=== PATIENT | female | born 1980 | race Caucasian/White ===

== ENCOUNTER 2020-05-05 13:11 | Emergency (ER) | payer OTHER, SELFPAY ==
--- NOTE | ~2020-05-05 | CT_ITS ---
EXAMINATION: CTA brain carotid DATE: 05/05/2020 14:46 INDICATION: Possible hypoxic brain injury, hanging TECHNIQUE: Computed tomographic angiography (CTA) of the head was performed without and with 100 mL O mnipaque-350 intravenous contrast. CTA of the neck was performed with intravenous contrast. The dose- length product was 1593.83 mGy-cm. Maximum intensity projection and volume rendered 3D-reconstruction s were created by the technologist on a separate workstation. Automated exposure control and iterativ e reconstruction technique were employed. COMPARISON: 10/25/2016 FINDINGS: HEAD CTA: There is no intracranial hemorrhage, acute infarction, or abnormal mass lesion. The ventric les are normal. There is no abnormal mass effect or midline shift. The delgado-white matter differentiat ion is normal. The basal cisterns are patent. The orbits are normal. The paranasal sinuses, mastoids and calvarium are normal. There is no significant stenosis of the basilar artery or posterior cerebral arteries. The right vert ebral artery is dominant. There is no significant stenosis of the intracranial internal carotid arter ies or the anterior or middle cerebral arteries. The anterior communicating artery and posterior comm unicating arteries are normal. There is no aneurysm. NECK CTA: There is multinodular goiter of the right thyroid lobe. The submandibular and parotid gland s are symmetric. There is no lymphadenopathy. There are no masses identified. The airway is unremarka ble. There are no osseous abnormalities. The superior mediastinum is unremarkable. There is 0% stenosis of the proximal right internal carotid artery relative to normal distal artery l umen diameter (NASCET criteria). There is 0% stenosis of the proximal left internal carotid artery re lative to normal distal artery lumen diameter. No carotid aneurysm or dissection are identified. IMPRESSION: 1. No acute intracranial abnormality. Normal head CTA. 2. 0% stenosis of the proximal right internal carotid artery relative to normal distal artery lumen d iameter (NASCET criteria). 3. 0% stenosis of the proximal left internal carotid artery relative to normal distal artery lumen di ameter. Reviewed, dictated and finalized at location A. AL OFFICER IMPRESSION: 1. No acute intracranial abnormality. Normal head CTA. 2. 0% stenosis of the proximal right internal carotid artery relative to normal distal artery lumen diameter (NASCET criteria). 3. 0% stenosis of the proximal left internal carotid artery relative to normal distal artery lumen diameter.
--- NOTE | ~2020-05-05 | XR_ITS ---
EXAMINATION: XR chest 1V INDICATION: Shortness of breath TECHNIQUE: Portable AP chest at 1451 hours COMPARISON: 10/25/2016 FINDINGS: The lungs are free of acute opacities. There is no pleural effusion or pneumothorax. The ca rdiomediastinal silhouette is normal. The visualized osseous structures are unremarkable. IMPRESSION: 1. No acute cardiopulmonary abnormality. Reviewed, dictated and finalized at location A. METRIC TECH
--- NOTE | ~2020-05-05 | CT_ITS ---
EXAMINATION: CT cervical spine wo con DATE: 05/05/2020 14:46 INDICATION: Neck pain, hanging TECHNIQUE: Computed tomography (CT) of the cervical spine was performed without intravenous contrast. The dose-length product (DLP) was 454.37 mGy-cm. Automated exposure control and iterative reconstruc tion technique were employed. COMPARISON: None FINDINGS: There is no fracture, dislocation, or subluxation. The vertebral body heights and alignment are normal. There is mild loss of intervertebral disc space height in the lower cervical spine. The odontoid is intact. Small degenerative osteophytes project from the anterior endplates of multiple ve rtebral bodies. The prevertebral soft tissues are normal. IMPRESSION: 1. No acute osseous abnormality. Reviewed, dictated and finalized at location A. TENANT FIRE FIGHTER
[2020-05-05 13:12] VITALS: BP 174/115; PULSE 118; RESP 18; TEMP 36.4; O2SAT 100
--- NOTE | 2020-05-05 13:23 | ECG_ITS ---
Measurements Intervals [place] Rate: 111 P: 59 IN: 104 QRS: 15 QRSD: 86 T: 76 QT: 318 QTc: 432 Interpretive Statements SINUS TACHYCARDIA WITH SHORT IN INTERVAL FREQUENT VENTRICULAR PREMATURE COMPLEXES POSSIBLE LEFT ATRIAL ENLARGEMENT VOLTAGE CRITERIA FOR LVH NONSPECIFIC ST & T-WAVE ABNORMALITY- HIGH LATERAL LEADS BASELINE WANDER- I, II, AVR, V1-V3 ABNORMAL ECG Electronically Signed On 05-05-2020 16:38:37 KEYSEATER OPERATOR by Barney Cartagena D.O.
--- NOTE | 2020-05-05 13:25 | PC.NURSE ---
patient was found hanging in her [facility] cell from a bed sheet. police estimate that patient was hanging for less than 5 min. patient was unresponsive upon arrival to er but yelled with sternal rub then became A&Ox4 and was able to answer questions. patient has been in [facility] for 2 weeks on a felony charge. patient has a history of bipolar disorder and has a history of previous attempts at ending her life including hanging
--- NOTE | 2020-05-05 14:01 | ED.GENADULT ---
HPI - General Adult General Chief complaint: Altered Mental Status Stated complaint: UNRESPONSIVE Time Seen by Provider: 05/05/20 13:18 History of Present Illness HPI narrative: Patient is a 40-year-old female who presents ER after an apparent suicide attempt. Patient currently tried to hang herself with a bed sheet at the group home. She had tied it to the bed and then leaned herself forward. Per report other inmate states she was in this position for 5 minutes before the event she was removed and she was brought to the ground. Per EMS she was unresponsive with shallow breathing they placed a left humeral intraosseous line. Upon arrival here patient not responding to other people and in a c-collar. Corneal reflex intact in patient woke up rapidly with noxious stimuli. She is oriented x4. Airways intact. Related Data Allergies Allergy/AdvReac Type Severity Reaction Status Date / Time No Known Allergies Allergy Unverified 10/25/16 17:27 Review of Systems Review of Systems: All systems reviewed & are unremarkable except as noted in HPI and below Constitutional: Constitutional: Denies chills, Denies fever(s) and Denies weakness ENT: Denies nasal congestion and Denies sore throat Cardiovascular: Cardiovascular: Denies chest pain and Denies radiating jaw, neck or arm pain Respiratory: Respiratory: Denies cough, Reports dyspnea and Denies wheezing Gastrointestinal: Gastrointestinal: Denies abdominal pain, Denies nausea and Denies vomiting Psychiatric: Psychiatric: Reports anxiety, Reports depression and Reports suicidal ideation PMF Past Medical History Medical History (Updated 05/05/20 @ 16:25 by Bryan Virk MD) Asthma History of cervical cancer Migraines Surgical History Surgical History (Updated 05/05/20 @ 14:04 by Bryan Virk MD) H/O tubal ligation History of hysterectomy Social History Social History (Updated 05/05/20 @ 14:05 by Bryan Virk MD) Substance use type: methamphetamine Exam Narrative: Exam Narrative: GENERAL: Well-appearing, well-nourished, and in no acute distress. HEAD: Normocephalic, atraumatic. EYES: PERRLA and EOMI. ENT: Mucous membranes moist. Abrasion to the chin. NECK: Supple. C-spine immobilized. No visual evidence of trauma to the neck. CHEST: Clear to auscultation. No respiratory distress. HEART: Tachycardic and regular. Normal peripheral pulses. ABDOMEN: Soft, nontender, nondistended. EXTREMITIES: Normal range of motion. No edema. SKIN: Warm, dry, no rash. NEURO: No focal deficits. Alert and oriented x3. PSYCH: Reports she does not want to live anymore and thus attempted to kill her self. Course Vital Signs Vital signs: Vital Signs Temperature 97.5 F L 05/05/20 13:12 Pulse Rate 118 H 05/05/20 13:12 Respiratory Rate 18 05/05/20 13:12 Blood Pressure 174/115 H 05/05/20 13:12 Pulse Oximetry 100 05/05/20 13:12 Temperature 97.5 F L 05/05/20 13:12 Pulse Rate 85 05/05/20 14:19 Respiratory Rate 18 05/05/20 14:19 Blood Pressure 147/112 H 05/05/20 14:19 Pulse Oximetry 99 05/05/20 14:19 Medical Decision Making MDM Narrative Medical decision making narrative: Unremarkable evaluation. No hypoxia. No stridor or difficulty breathing/swallowing. Police present throughout entirety of visit. They are able to monitor patient under suicide precautions at the group home. Patient will be discharged in their custody. Patient continues to endorse suicidal ideation and wants us to just kill her. Vital Signs Vital Signs: Vital Signs Temperature 97.5 F L 05/05/20 13:12 Pulse Rate 118 H 05/05/20 13:12 Respiratory Rate 18 05/05/20 13:12 Blood Pressure 174/115 H 05/05/20 13:12 Pulse Oximetry 100 05/05/20 13:12 Temperature 97.5 F L 05/05/20 13:12 Pulse Rate 85 05/05/20 14:19 Respiratory Rate 18 05/05/20 14:19 Blood Pressure 147/112 H 05/05/20 14:19 Pulse Oximetry 99 05/05/20 14:19 Lab Data Resul
[2020-05-05 14:09] LABS: Add Urine Microscopic? NO; Appearance Urine Clear (Clear); Bilirubin Urine Negative (Negative); Blood Urine Negative (Negative); Color Urine Straw (Yellow); Glucose Urine UA Negative (Negative); Ketones Urine Negative (Negative); Leukocyte Esterase Ur Negative LEU/UL (Negative); Nitrate Urine Negative (Negative); Protein Urine Negative (Negative); Urobilinogen Urine Negative mg/dL (<2.0)
[2020-05-05] MEDS: SODIUM CHLORIDE 0.9% IV 1,000 ML 999 ML IV CONT (14:14)
[2020-05-05 14:16] LABS: Amphetamine Screen Urine Negative (Negative); Barbiturate Screen Urine Negative (Negative); Benzodiazepines Screen Urine Negative (Negative); Cannabinoid Screen Urine Negative (Negative); Cocaine Screen Urine Negative (Negative); Methadone Screen Urine Negative (Negative); Opiate Screen Urine Negative (Negative); Phencyclidine Screen Urine Negative (Negative)
[2020-05-05 14:19] VITALS: BP 147/112; PULSE 85; RESP 18; O2SAT 99
[2020-05-05 14:21] LABS: Basophils Absolute Auto 0.1 K/mm3 (0.0-0.1); Basophils Percent Auto 0.6 % (0.2-1.2); Eosinophils Absolute Auto 0.1 K/mm3 (0-0.3); Eosinophils Percent Auto 1.1 % (0-4.4); Hematocrit 45.3 % (37.0-47.0); Hemoglobin 14.8 g/dL (12.0-15.0); Immature Granulocyte Absolute 0.11 K/mm3 (0.00-0.031); Immature Granulocyte Percent A 1.1 % (0-0.5); Lymphocytes Absolute Auto 2.11 K/mm3 (0.9-3.2); Lymphocytes Percent Auto 20.8 % (18.3-44.2); Mean Corpuscular HGB Conc 32.7 g/dl (32-36); Mean Corpuscular Hemoglobin 30.2 pg (26-34); Mean Corpuscular Volume 92.4 fl (80-100); Mean Platelet Volume 9.8 fl (7.4-10.4); Monocytes Absolute Auto 0.4 K/mm3 (0.1-0.6); Monocytes Percent Auto 4.1 % (2.6-8.5); Neutrophils Absolute Auto 7.3 K/mm3 (1.3-6.7); Neutrophils Percent Auto 72.3 % (45.5-73.1); Platelet Count Result 361 k/mm3 (150-375); Red Cell Distribution Width 12.1 % (11.5-14.5); White Blood Count 10.1 K/mm3 (4.5-10.0)
--- NOTE | 2020-05-05 14:28 | PC.NURSE ---
patient continue to be observed by [facility] officers and continues to have ankle cuffs on
[2020-05-05 14:30] LABS: Ethanol < 10 mg/dL (<10)
[2020-05-05 14:31] LABS: Alanine Aminotransferase 23 U/L (4-35); Albumin Level 3.8 g/dL (3.5-5.1); Alkaline Phosphatase 131 U/L (38-126); Anion Gap 6 mmol/L (8-16); Aspartate Amino Transferase 20 U/L (14-36); Bilirubin,Total 0.3 mg/dL (0.2-1.3); Blood Urea Nitrogen 16 mg/dL (7-17); Calcium 9.4 mg/dL (8.4-10.2); Carbon Dioxide 31 mmol/L (22-30); Chloride 101 mmol/L (98-107); Estimated CRCL calculation 87 ml/min; Estimated Glomerular Filt Rate > 60; Glucose 157 mg/dL (65-105); Potassium 4.2 mmol/L (3.4-5.0); Sodium 138 mmol/L (137-145)
--- NOTE | 2020-05-05 15:43 | PC.NURSE ---
cervical collar removed
[2020-05-05 16:49] VITALS: BP 148/78; PULSE 80; RESP 18; O2SAT 99
--- NOTE | 2020-05-19 14:12 | PC.NURSE ---
LATE ENTRY This note is being entered to document information to the patient's record. The following information was omitted on [05/05/20], by [Glenny Castle RN]. LILLIAN Virk, Insert Swan cath for urine output accuracy.
--- NOTE | 2020-06-02 10:51 | PC.NURSE ---
late entry-- recieved verbal order from [facility] for miguel mayfield
== END 2020-05-05 16:51 ==
PROVIDERS: Emergency Provider Emergency Medicine
DX: T71.162A Asphyxiation due to hanging, intentional self-harm, initial encounter (principal); J45.909 Unspecified asthma, uncomplicated; Z85.41 Personal history of malignant neoplasm of cervix uteri
CPT/HCPCS: 36415; 51702; 70496; 70498; 71045; 72125; 80053; 80307; 81003; 81025; 84443; 85025; 93005; 96360; 99284; J7030; Q9967

== ENCOUNTER 2023-01-23 14:48 | Emergency (ER) | payer BC, SELFPAY ==
--- NOTE | ~2023-01-23 | XR_ITS ---
EXAMINATION: XR chest 2V DATE: 01/23/2023 15:10 INDICATION: Shortness of breath TECHNIQUE: Frontal and lateral views of the chest are obtained COMPARISON: 05/05/2020 FINDINGS: The lungs are free of acute opacities. No pleural effusion or pneumothorax. The cardiomedia stinal silhouette is normal. There is moderate thoracic spondylosis. Calcified hilar and paratracheal lymph nodes are consistent with old granulomatous disease. IMPRESSION: 1. No acute cardiopulmonary abnormality. Reviewed, dictated and finalized at location B.
--- NOTE | 2023-01-23 14:52 | ED.URI ---
HPI - URI/Sore Throat General Chief Complaint: Upper Respiratory Infection Stated Complaint: Congestion,Cough,Trouble Breathing Source: patient and RN notes reviewed Mode of arrival: ambulatory Limitations: no limitations History of Present Illness HPI Narrative: patient is a 42-year-old female presents to the [facility] with complaints congestion and cough for the past week. Patient states that initially 1 week ago, she had headache and sinus congestion. Patient states that she also had a frequent nonproductive cough. Recently, patient states that the cough is now causing tightness in her chest. She reports some intermittent shortness of breath. She is unsure fever but reports sweats and chills. She also endorses a mild sore throat And mild back pain. She denies urinary symptoms. Denies flank pain. Patient states that she has taken at home covid test that were negative. She does not appear in any acute distress. Her respirations are unlabored at this time. Related Data Home Medications Medication Instructions Recorded Confirmed amlodipine 5 mg tablet 5 mg PO DAILY 01/23/23 01/23/23 bupropion HCl 150 mg 24 hr tablet, 150 mg PO HS 01/23/23 01/23/23 extended release bupropion HCl 300 mg 24 hr tablet, 300 mg PO DAILY 01/23/23 01/23/23 extended release buspirone 15 mg tablet 30 mg PO BID 01/23/23 01/23/23 fenofibrate 160 mg tablet 160 mg PO DAILY 01/23/23 01/23/23 gabapentin 300 mg capsule 800 mg PO TID 01/23/23 01/23/23 ibuprofen 800 mg tablet 800 mg PO TID 01/23/23 01/23/23 losartan 50 mg tablet 50 mg PO DAILY 01/23/23 01/23/23 mirtazapine 15 mg tablet 15 mg PO DAILY 01/23/23 01/23/23 prazosin 2 mg capsule 2 mg PO HS 01/23/23 01/23/23 propranolol 40 mg tablet 40 mg PO PRN PRN Anxiety 01/23/23 01/23/23 Allergies Allergy/AdvReac Type Severity Reaction Status Date / Time No Known Allergies Allergy Verified 01/23/23 15:07 Review of Systems Review of Systems: CONSTITUTIONAL: Denies fever, but reports chills and sweats. EYES: Denies visual changes, redness, or discharge. ENT: Denies otalgia. Reports sore throat. CARDIOVASCULAR: Denies chest pain, palpitations, or edema. RESPIRATORY: Reports cough and dyspnea. GASTROINTESTINAL: Denies abdominal pain, nausea, vomiting, or diarrhea. GENITOURINARY: Denies dysuria or hematuria. SKIN: Denies rash or itching. MUSCULOSKELETAL: Reports back pain, but denies joint pain or myalgia. NEUROLOGIC: Denies headache, numbness, or weakness. Pertinent positives per HPI. [facility] Past Medical History Medical History Asthma History of cervical cancer Migraines Surgical History Surgical History H/O tubal ligation History of hysterectomy Social History Social History Substance use type: methamphetamine Comments At the time of my signature, I reviewed and agree with the nursing past medical, surgical, social, and family history. There is no relevant family history pertinent to the patient complaint. Exam Narrative: GENERAL: This is a well-nourished, well-developed patient, in no apparent distress. HEAD: normocephalic, atraumatic. EYES: PERRL. Sclera clear/white. Vision is grossly intact. EARS: External ears normal, auditory canals clear and without drainage, TMs normal without perforation. Hearing grossly intact. NOSE: External nose normal with no obvious nasal discharge, nares without redness, no rhinorrhea. THROAT: Mucous membranes moist, oropharyngeal erythema without exudate or ulceration. NECK: Neck supple, non-tender without lymphadenopathy, masses or thyromegaly. CARDIOVASCULAR: Regular rate and rhythm without murmurs, gallops, or rubs. RESPIRATORY: Clear to auscultation. Breath sounds equal bilaterally. No wheezes, rales, or rhonchi. GASTROINTESTINAL: Abdomen soft, non-tender, nondistended. B
[2023-01-23 15:02] VITALS: BP 143/101; PULSE 100; RESP 16; TEMP 36.9; O2SAT 100
== END 2023-01-23 15:25 | disposition home or self-care (01) ==
PROVIDERS: Emergency Provider Nurse Practitioner
DX: J40 Bronchitis, not specified as acute or chronic (principal); Z79.899 Other long term (current) drug therapy; Z79.1 Long term (current) use of non-steroidal anti-inflammatories (NSAID)
CPT/HCPCS: 71046; 87081; 87880; 99213; G0463